=== PATIENT | male | born 1960 | race Caucasian/White ===

== ENCOUNTER 2018-05-16 19:21 | Emergency (ER) | payer SELFPAY ==
[~2018-05-16] VITALS: Ht 167.6 cm; Wt 84.1 kg
[2018-05-16 19:26] VITALS: BP 154/85; PULSE 102; TEMP 98.9
[2018-05-16] MEDS ORDERED: GLUCOPHAGE1000 MG PO (19:35)
[2018-05-16] MEDS ORDERED: GLUCOTROL10 MG PO (19:35)
[2018-05-16] MEDS ORDERED: MICROZIDE12.5 MG PO (19:36)
[2018-05-16] MEDS ORDERED: HYTRIN10 M1 PO (19:36)
[2018-05-16] MEDS ORDERED: ZESTRIL 5MG5 MG PO (19:38)
[2018-05-16] MEDS ORDERED: CEPHALEXIN500 M1 PO (20:38)
== END 2018-05-16 20:59 | disposition home or self-care (01) ==
LOC: COL.ER 19:21
DX: S61.244A Puncture wound with foreign body of right ring finger without damage to nail, initial encounter (principal); I10 Essential (primary) hypertension; E11.9 Type 2 diabetes mellitus without complications; Z23 Encounter for immunization; Z79.84 Long term (current) use of oral hypoglycemic drugs; W45.8XXA Other foreign body or object entering through skin, initial encounter; Y92.009 Unspecified place in unspecified non-institutional (private) residence as the place of occurrence of the external cause